=== PATIENT | female | born 1980 | race Caucasian/White ===

== ENCOUNTER 2019-02-13 13:56 | Emergency (ER) | payer MEDICAID ==
[2019-02-13] MEDS ORDERED: Sodium Chloride 0.9% 1,000 ML IV SCH ×2 (14:15→16:30)
--- NOTE | 2019-02-13 14:26 | EDM.PDOC ---
ED HPI GENERAL MEDICAL PROBLEM - General Chief Complaint: General Stated Complaint: MEDICAL [facility] Time Seen by Provider: 02/13/19 14:17 Source of Information: Reports: Patient History Limitations: Reports: No Limitations - History of Present Illness INITIAL COMMENTS - FREE TEXT/NARRATIVE: pt arrived with a history of a head injury with a memory loss. She was recently in half-way for a warrant. She does not remember being there. She has a history of a seizure disorder. She has not had her keppara for several days. She also has not had the gabapentin for several days. Onset: Today, Sudden, Other (pt had a seizure at the [facility] and she vomited everything that she ate. ) Duration: Hour(s): Location: Reports: Head, Abdomen, Generalized Associated Symptoms: Reports: Confusion, Nausea/Vomiting, Other (pt is about 2 monthes . ) Headache Pain Score (Numeric/FACES): 7 - Related Data Allergies Allergy/AdvReac Type Severity Reaction Status Date / Time [place] And Derivatives Allergy Hives Verified 02/13/19 14:01 shellfish derived Allergy Hives Verified 02/13/19 14:01 Home Meds: Home Meds Gabapentin [Neurontin] 800 mg PO QID 02/13/19 [History] levETIRAcetam [Levetiracetam] 1 tab PO BID 02/13/19 [History] Past Medical History Respiratory History: Reports: Asthma Neurological History: Reports: Seizure - Past Surgical History Head Surgeries/Procedures: Reports: None Respiratory Surgical History: Reports: None Neurological Surgical History: Reports: None Dermatological Surgical History: Reports: None Social & Family History - Family History Family Medical History: Noncontributory - Tobacco Use Smoking Status *Q: Never Smoker Second Hand Smoke Exposure: No - Caffeine Use Caffeine Use: Reports: Soda - Recreational Drug Use Recreational Drug Use: No ED ROS GENERAL - Review of Systems Review Of Systems: See Below Constitutional: Reports: No Symptoms, Other (PT HAD A SEIZURE AT THE [employer] AND SHE VOMITED EVERYWHERE. ) HEENT: Reports: No Symptoms Respiratory: Reports: No Symptoms Cardiovascular: Reports: No Symptoms Endocrine: Reports: No Symptoms GI/Abdominal: Reports: Nausea, Vomiting, Other (PT HAD A SEIZURE. ) : Reports: No Symptoms, Other (PT THINKS SHE ) Musculoskeletal: Reports: No Symptoms Skin: Reports: No Symptoms Neurological: Reports: Other (PT WAS CONFUSED AT FIRST . sHE DOES NOT REMEMBER GOING TO THE [facility]. sHE DOES NOT REMEMBER BEING IN THE [facility]. ) Psychiatric: Reports: Anxiety ED EXAM, GENERAL - Physical Exam Exam: See Below Free Text/Narrative:: PT Exam Limited By: No Limitations General Appearance: Alert, No Apparent Distress, Other (PUPILS EQUAL AND REACTIVE. ) Ears: Normal TMs Nose: Normal Inspection Throat/Mouth: Normal Inspection Head: Atraumatic, Other (PT HAS A HISTORY OF A OLD CLOSED HEAD INJURY. sHE IS VERY FORGETFUL. sHE HAS NOT BEEN TAKING HER SEIZURE MEDICATION) Neck: Normal Inspection Respiratory/Chest: No Respiratory Distress Cardiovascular: Regular Rate, Rhythm, Tachycardia GI/Abdominal: Soft, Non-Tender (Female) Exam: Other (PT IS AND SHE HAD AN us WHICH SHOWED A PREG OF GREATER THAN 12 WEEKS. sHE IS HAVINFG SOME SPOTTING AT THIS POINT. ) Rectal (Female) Exam: Deferred Back Exam: Normal Inspection Extremities: Normal Inspection Neurological: Alert, Oriented, Normal Cognition Psychiatric: Anxious Course - Vital Signs Last Recorded V/S: Last Vital Signs Temp 37.1 C 02/13/19 15:56 Pulse 55 L 02/13/19 15:56 Resp 16 02/13/19 15:56 BP 119/80 02/13/19 15:56 Pulse Ox 100 02/13/19 15:56 - Orders/Labs/Meds Orders: Active Orders 24 hr Category Date Time Status LEVETIRACETAM (KEPPRA), S Stat Lab 02/13/19 14:22 Received Sodium Chloride 0.9% [Normal Saline] 1,000 ml Med 02/13/19 14:15 Active IV ASDIRECTED Sodium Chloride 0.9% [Normal Saline] 1,000 ml Med 02/13/19 16:30 Active IV ASDIRECTED Medication Orders Sodium Chloride (Normal Saline) 1,000 mls @ 999 mls/hr IV ASDIRECTED NICK Last Admin: 02/13/19 14:51 Dose: 999 mls/hr Sodium Chloride (Normal Saline) 1,000 mls @ 999 mls/hr IV ASDIRECTED NICK Labs: Laboratory Tests 02/13/19 02/13/19 02/13/19 Range/Units 14:22 14:22 14:36 WBC 8.5 (4.5-11.0) K/uL RBC 4.89 (3.30-5.50) M/uL Hgb 11.0 L (12.0-15.0) g/dL Hct 35.3 L (36.0-48.0) % MCV 72 L (80-98) fL MCH 23 L (27-31) pg MCHC 31 L (32-36) % Plt Count 320 (150-400) K/uL Neut % (Auto) 73 H (36-66) % Lymph % (Auto) 16 L (24-44) % [place] % (Auto) 11 H (2-6) % Eos % (Auto) 0 L (2-4) % Baso % (Auto) 0 (0-1) % Sodium 138 L (140-148) mmol/L Potassium 3.7 (3.6-5.2) mmol/L Chloride 102 (100-108) mmol/L Carbon Dioxide 26 (21-32) mmol/L Anion Gap 13.7 (5.0-14.0) mmol/L BUN 10 (7-18) mg/dL Creatinine 0.6 (0.6-1.0) mg/dL Est Cr Clr Drug Dosing 124.84 mL/min Estimated GFR (MDRD) > 60 (>60) Glucose 82 (74-106) mg/dL Calcium 8.5 (8.5-10.1) mg/dL Total Bilirubin 0.2 (0.2-1.0) mg/dL AST 9 L (15-37) U/L ALT 17 (12-78) U/L Alkaline Phosphatase 84 (46-116) U/L Total Protein 8.0 (6.4-8.2) g/dL Albumin 3.3 L (3.4-5.0) g/dL Globulin 4.7 H (2.3-3.5) g/dL Albumin/Globulin Ratio 0.7 L (1.2-2.2) HCG, Quant (0-6) mIU/mL Urine Color Yellow (YELLOW) Urine Appearance Slightly cloudy A (CLEAR) Urine pH >= 9.0 H (5.0-8.0) Ur Specific [place] 1.015 (1.008-1.030) Urine Protein 100 H (NEGATIVE) mg/dL Urine Glucose (UA) Negative (NEGATIVE) mg/dL Urine Ketones Negative (NEGATIVE) mg/dL Urine Occult Blood Negative (NEGATIVE) Urine Nitrite Negative (NEGATIVE) Urine Bilirubin Negative (NEGATIVE) Urine Urobilinogen 0.2 (0.2-1.0) EU/dL Ur Leukocyte Esterase Negative (NEGATIVE) Urine RBC 0-5 (0-5) Urine WBC 0-5 (0-5) Ur Epithelial Cells Few Amorphous Sediment Moderate Urine Bacteria Not seen Urine Mucus Moderate Urine Opiates Screen (NEGATIVE) Ur Oxycodone Screen (NEGATIVE) Urine Methadone Screen (NEGATIVE) Ur Propoxyphene Screen (NEGATIVE) Ur Barbiturates Screen (NEGATIVE) Ur Tricyclics Screen (NEGATIVE) Ur Phencyclidine Scrn (NEGATIVE) Ur Amphetamine Screen (NEGATIVE) U Methamphetamines Scrn (NEGATIVE) Urine MDMA Screen (NEGATIVE) U Benzodiazepines Scrn (NEGATIVE) U Cocaine Metab Screen (NEGATIVE) U Marijuana (THC) Screen (NEGATIVE) 02/13/19 02/13/19 Range/Units 14:36 14:53 WBC (4.5-11.0) K/uL RBC (3.30-5.50) M/uL Hgb (12.0-15.0) g/dL Hct (36.0-48.0) % MCV (80-98) fL MCH (27-31) pg MCHC (32-36) % Plt Count (150-400) K/uL Neut % (Auto) (36-66) % Lymph % (Auto) (24-44) % [place] % (Auto) (2-6) % Eos % (Auto) (2-4) % Baso % (Auto) (0-1) % Sodium (140-148) mmol/L Potassium (3.6-5.2) mmol/L Chloride (100-108) mmol/L Carbon Dioxide (21-32) mmol/L Anion Gap (5.0-14.0) mmol/L BUN (7-18) mg/dL Creatinine (0.6-1.0) mg/dL Est Cr Clr Drug Dosing mL/min Estimated GFR (MDRD) (>60) Glucose (74-106) mg/dL Calcium (8.5-10.1) mg/dL Total Bilirubin (0.2-1.0) mg/dL AST (15-37) U/L ALT (12-78) U/L Alkaline Phosphatase (46-116) U/L Total Protein (6.4-8.2) g/dL Albumin (3.4-5.0) g/dL Globulin (2.3-3.5) g/dL Albumin/Globulin Ratio (1.2-2.2) HCG, Quant 74886 H (0-6) mIU/mL Urine Color (YELLOW) Urine Appearance (CLEAR) Urine pH (5.0-8.0) Ur Specific [place] (1.008-1.030) Urine Protein (NEGATIVE) mg/dL Urine Glucose (UA) (NEGATIVE) mg/dL Urine Ketones (NEGATIVE) mg/dL Urine Occult Blood (NEGATIVE) Urine Nitrite (NEGATIVE) Urine Bilirubin (NEGATIVE) Urine Urobilinogen (0.2-1.0) EU/dL Ur Leukocyte Esterase (NEGATIVE) Urine RBC (0-5) Urine WBC (0-5) Ur Epithelial Cells Amorphous Sediment Urine Bacteria Urine Mucus Urine Opiates Screen Negative (NEGATIVE) Ur Oxycodone Screen Negative (NEGATIVE) Urine Methadone Screen Negative (NEGATIVE) Ur Propoxyphene Screen Negative (NEGATIVE) Ur Barbiturates Screen Negative (NEGATIVE) Ur Tricyclics Screen Negative (NEGATIVE) Ur Phencyclidine Scrn Negative (NEGATIVE) Ur Amphetamine Screen Negative (NEGATIVE) U Methamphetamines Scrn Negative (NEGATIVE) Urine MDMA Screen Negative (NEGATIVE) U Benzodiazepines Scrn Negative (NEGATIVE) U Cocaine Metab Screen Negative (NEGATIVE) U Marijuana (THC) Screen Negative (NEGATIVE) Meds: Medications Generic Name Dose Route Start Last Admin Trade Name Freq PRN Reason Stop Dose Admin Sodium Chloride 1,000 mls @ 999 mls/hr 02/13/19 14:15 02/13/19 14:51 Normal Saline IV 999 mls/hr ASDIRECTED NICK Administration Sodium Chloride 1,000 mls @ 999 mls/hr 02/13/19 16:30 Normal Saline IV ASDIRECTED NICK Discontinued Medications Generic Name Dose Route Start Last Admin Trade Name Freq PRN Reason Stop Dose Admin Gabapentin 800 mg 02/13/19 15:45 02/13/19 15:57 Neurontin PO 02/13/19 15:46 800 mg ONETIME ONE Administration Levetiracetam 750 mg/ Sodium 107.5 mls @ 400 mls/hr 02/13/19 14:32 02/13/19 15:57 Chloride IV 02/13/19 14:46 400 mls/hr ONETIME ONE Administration Ondansetron HCl 4 mg 02/13/19 14:30 02/13/19 14:59 Zofran IVPUSH 02/13/19 14:31 4 mg ONETIME ONE Administration Ondansetron HCl 4 mg 02/13/19 16:43 Zofran IVPUSH 02/13/19 16:44 ONETIME ONE - Re-Assessments/Exams Free Text/Narrative Re-Assessment/Exam: 02/13/19 16:22 pT HAD AN US WHICH SHOWED A PREG WHICH IS GREATER THAN 12 WEEKS. SHE WAS GIVEN GABAPENTIN 800MG AND KEPPARA 750 MG IV. sHE HAS NOT HAD FURTHER SEIZURE ACTIVITY. 02/13/19 17:02 Departure - Departure Time of Disposition: 17:03 Disposition: Home, Self-Care 01 Condition: Fair Clinical Impression: Seizure, 12 weeks gestation of , Poor compliance with medication, History of closed head injury - Discharge Information Referrals: PCP,None [Primary Care Provider] - Forms: ED Department Discharge Care Plan Goals: RESUNME USUAL SEIZURE MEDICATION AND TAKE THEM REGULARLY, GET AN APPT FOR A FIRST OB AND BE SURE HER PRESENT MEDS ARE OK WITH THE PREG, VITS HIGH IN FOLIC ACID , Sepsis Event Note - Evaluation Sepsis Screening Result: No Definite Risk - Focused Exam Vital Signs: Vital Signs Temp Pulse Resp BP Pulse Ox 02/13/19 15:56 37.1 C 55 L 16 119/80 100 02/13/19 13:59 36.4 C 80 16 121/85 100 Date Exam was Performed: 02/13/19 Time Exam was Performed: 17:02 - My Orders Last 24 Hours: My Active Orders 02/13/19 14:15 Sodium Chloride 0.9% [Normal Saline] 1,000 ml IV ASDIRECTED 02/13/19 14:22 LEVETIRACETAM (KEPPRA), S Stat 02/13/19 16:30 Sodium Chloride 0.9% [Normal Saline] 1,000 ml IV ASDIRECTED - Assessment/Plan Last 24 Hours: My Active Orders 02/13/19 14:15 Sodium Chloride 0.9% [Normal Saline] 1,000 ml IV ASDIRECTED 02/13/19 14:22 LEVETIRACETAM (KEPPRA), S Stat 02/13/19 16:30 Sodium Chloride 0.9% [Normal Saline] 1,000 ml IV ASDIRECTED
[2019-02-13] MEDS ORDERED: Ondansetron 4 MG/2 ML SDV IVPUSH ONE ×2 (14:30→16:43)
[2019-02-13] MEDS ORDERED: Gabapentin 300 MG Cap PO ONE (15:08)
[2019-02-13] MEDS ORDERED: Gabapentin 400 MG Cap PO ONE (15:45)
--- NOTE | 2019-02-13 16:34 | CRLUS ---
HISTORY: Unsure of LMP. Dating. COMPARISON: None available of this gestation. TECHNIQUE: Transvaginal ultrasound examination of the early was performed. FINDINGS: A single intrauterine gestational sac is seen with a pole. The crown-rump length measurement of 5.4 cm gives an estimated gestational age of 12 weeks 1 day with an estimated date of delivery of 08/27/2019. The LMP is unknown. Regular cardiac activity is seen at 149 BPM. Incidental note is made of incomplete fusion of the amnion and chorion. There is no sign of free fluid in the pelvis. The ovaries cannot be identified. IMPRESSION: Single intrauterine gestation with estimated age of 12 weeks 1 day. Regular cardiac activity is seen. Dictated by Mikel Gaona MD @ Feb 13 2019 4:29PM Signed by Dr. Mikel Gaona @ Feb 13 2019 4:31PM
== END 2019-02-13 17:57 | disposition home or self-care (01) ==
LOC: JP.ED 13:56
DX: O99.351 Diseases of the nervous system complicating pregnancy, first trimester (principal); G40.909 Epilepsy, unspecified, not intractable, without status epilepticus; O99.511 Diseases of the respiratory system complicating pregnancy, first trimester; J45.909 Unspecified asthma, uncomplicated; Z91.013 Allergy to seafood; Z91.048 Other nonmedicinal substance allergy status; Z91.14 Patient's other noncompliance with medication regimen; Z87.820 Personal history of traumatic brain injury; Z3A.12 12 weeks gestation of pregnancy
CPT/HCPCS: 36415; 76815; 80053; 80177; 80305; 81001; 84702; 85025; 96361; 96365; 96375; 96376; 99285; A9270; J1953; J2405; J7030; J7050

== ENCOUNTER 2021-03-16 02:05 | Emergency (ER) | payer OTHER, MEDICAID | END 2021-03-16 03:06 | LOC: JP.ED 02:05 | DX: F41.9 Anxiety disorder, unspecified (principal); F15.90 Other stimulant use, unspecified, uncomplicated; R56.9 Unspecified convulsions; I10 Essential (primary) hypertension; J45.909 Unspecified asthma, uncomplicated; E66.9 Obesity, unspecified; Z91.013 Allergy to seafood; Z68.31 Body mass index [BMI] 31.0-31.9, adult | CPT/HCPCS: 36415; 80053; 80305-QW; 80307; 81001; 82550; 83605; 85025; 99284 ==

== ENCOUNTER 2021-03-28 21:19 | Emergency (ER) | payer OTHER, MEDICAID ==
[2021-03-28] MEDS ORDERED: Ketorolac 30 MG/ML SDV IVPUSH ONE (22:21)
[2021-03-28] MEDS ORDERED: Prochlorperazine 10 MG/2 ML SDV IVPUSH ONE (22:21)
[2021-03-28] MEDS ORDERED: Gabapentin 400 MG Cap PO STA (22:22)
[2021-03-28] MEDS ORDERED: levETIRAcetam 250 MG Tab PO STA (22:22)
[2021-03-28] MEDS ORDERED: Sodium Chloride 0.9% 1,000 ML IV SCH (22:30)
== END 2021-03-28 23:56 ==
LOC: JP.ED 21:19
DX: G40.919 Epilepsy, unspecified, intractable, without status epilepticus (principal); I10 Essential (primary) hypertension; J45.909 Unspecified asthma, uncomplicated; E66.9 Obesity, unspecified; Z68.30 Body mass index [BMI] 30.0-30.9, adult; Z91.013 Allergy to seafood; Z88.8 Allergy status to other drugs, medicaments and biological substances
CPT/HCPCS: 80053; 80177; 80305; 81001; 82550; 82803; 85025; 96374; 96375; 99282; 99285; A9270; J0780; J1885; J7030

== ENCOUNTER 2022-02-25 14:39 | Emergency (ER) | payer MEDICAID, OTHER | END 2022-02-25 16:01 | disposition home or self-care (01) | LOC: JP.ED 14:39 | DX: R56.9 Unspecified convulsions (principal); I10 Essential (primary) hypertension; E66.9 Obesity, unspecified; Z68.32 Body mass index [BMI] 32.0-32.9, adult; Z91.199 Patient's noncompliance with other medical treatment and regimen due to unspecified reason; Z91.013 Allergy to seafood; Z91.048 Other nonmedicinal substance allergy status; Z79.899 Other long term (current) drug therapy | CPT/HCPCS: 99283; 99284 ==

== ENCOUNTER 2022-03-01 11:42 | Emergency (ER) | payer MEDICAID, OTHER ==
[2022-03-01] MEDS ORDERED: Ketorolac 30 MG/ML SDV IM ONE (12:14)
[2022-03-01] MEDS ORDERED: levETIRAcetam 500 MG/5 ML Solution ML 473 ml Bottle PO ONE (12:30)
[2022-03-01] MEDS ORDERED: Gabapentin 400 MG Cap PO ONE (12:31)
[2022-03-01] MEDS ORDERED: levETIRAcetam 250 MG Tab PO ONE (13:00)
== END 2022-03-01 13:31 ==
LOC: JP.ED 11:42
DX: G40.909 Epilepsy, unspecified, not intractable, without status epilepticus (principal); J45.909 Unspecified asthma, uncomplicated; I10 Essential (primary) hypertension; E66.9 Obesity, unspecified; Z68.30 Body mass index [BMI] 30.0-30.9, adult; Z91.013 Allergy to seafood; Z88.8 Allergy status to other drugs, medicaments and biological substances; Z91.048 Other nonmedicinal substance allergy status; Z79.899 Other long term (current) drug therapy
CPT/HCPCS: 36415; 80048; 83605; 85025; 96372; 99283; 99285; A9270-GY; J1885

== ENCOUNTER 2022-03-01 18:28 | Emergency (ER) | payer MEDICAID ==
[2022-03-01] MEDS ORDERED: Ketorolac 15 MG/ML SDV IM ONE (18:59)
[2022-03-01 19:32] LABS: ESTIMATED GFR 83 mL/min (>60)
== END 2022-03-01 20:25 ==
LOC: JP.ED 18:28
DX: F41.1 Generalized anxiety disorder (principal); G40.909 Epilepsy, unspecified, not intractable, without status epilepticus; J45.909 Unspecified asthma, uncomplicated; I10 Essential (primary) hypertension; E66.9 Obesity, unspecified; Z68.31 Body mass index [BMI] 31.0-31.9, adult; Z91.02 Food additives allergy status; Z91.013 Allergy to seafood; Z91.09 Other allergy status, other than to drugs and biological substances; Z79.51 Long term (current) use of inhaled steroids
CPT/HCPCS: 36415; 80053; 83605; 85025; 86140; 96372; 99284; J1885